=== PATIENT | male | born 1980 | race African-American/Black ===

== ENCOUNTER 2017-05-24 01:28 | Emergency (ER) | payer SELFPAY ==
[~2017-05-24] VITALS: Ht 182.9 cm; Wt 109.0 kg
[2017-05-24] MEDS ORDERED: KETOROLAC 30MG/ML VIAL IM ONE (06:45)
[2017-05-24 07:04] VITALS: BP 121/78
== END 2017-05-24 08:03 | disposition home or self-care (01) ==
LOC: ER 01:28
DX: R51 Headache (principal); M54.2 Cervicalgia; F17.210 Nicotine dependence, cigarettes, uncomplicated
CPT/HCPCS: 96372; 99283; J1885; Z7610

== ENCOUNTER 2020-05-13 22:51 | Emergency (ER) | payer MEDICAID ==
[~2020-05-13] VITALS: Ht 182.9 cm; Wt 104.0 kg
[2020-05-13 23:04] VITALS: BP 152/99
== END 2020-05-14 02:28 | disposition left against medical advice (07) ==
LOC: ER 22:51
DX: M25.532 Pain in left wrist (principal); Z53.21 Procedure and treatment not carried out due to patient leaving prior to being seen by health care provider